=== PATIENT | female | born 1980 | race Caucasian/White ===

== ENCOUNTER 2017-04-14 07:14 | Emergency (ER) | payer SELFPAY ==
--- NOTE | ~2017-04-14 | ER ---
PATIENT'S NAME: WILLPRIMITIVO Casanova [facility] AGE: 36 Y [address] ROOM: [place] [address] LOCATION: ED ADMIT DATE: 04/14/2017 ER/Outpatient Report DISCHARGE DATE: 04/14/2017 FAMILY PHYSICIAN: Itzel Locke MD ATTENDING PHYSICIAN: Sandra Delatorre Time of Arrival: 0720 hours. Time of Evaluation/Seen: 0726 hours. IDENTIFICATION: A 36-year-old female. CHIEF COMPLAINT: Anxiety attack. HISTORY OF PRESENT ILLNESS: The patient is a 36-year-old female who has anxiety, has been seeing Dr. Locke. She saw Dr. Locke and was placed on Wellbutrin on February 23, increased the dose 10 days ago. Today, she has chest tightness. She has been having that off and on lately, short of breath, numbness in her hands bilaterally, abdominal pain, and nausea. No vomiting. No diarrhea or constipation. No other symptoms. The patient did not go to [place] today because she did not have a way to get there and was very anxious so came in here. PAST MEDICAL HISTORY: ALLERGIES: PENICILLIN. CURRENT MEDICATIONS: 1. Symbicort. 2. She just finished prednisone for respiratory symptoms. 3. Wellbutrin. 4. Trazodone. MEDICAL PROBLEMS: Anxiety and asthma. PAST SURGICAL HISTORY: Surgeries: 1. Appendectomy. 2. Tonsillectomy. SOCIAL HISTORY: [facility] 36 [facility] [address] ROOM: [place] [address] LOCATION: ED ADMIT DATE: 04/14/2017 ER/Outpatient Report DISCHARGE DATE: 04/14/2017 FAMILY PHYSICIAN: Itzel Locke MD ATTENDING PHYSICIAN: Sandra Delatorre The patient was living in [place]. She is currently going through a divorce, living with a friend here in [place]. She was working for [employer] and [employer], and just got a new job. Also in [employer]. Tobacco use, 1 pack per day. Alcohol use, socially. She has 20-year-old twins and a 14-year-old. REVIEW OF SYSTEMS: All systems reviewed and negative other than what is noted in the HPI. The patient's last menstrual period was in October 2008. She had an endometrial ablation. Her next appointment with a therapist, Debbie is next week on Wednesday. She goes every other week. She has no suicidal ideation. She has had no weight loss or weight gain. No difficulty sleeping with the trazodone. FAMILY HISTORY: Positive for asthma. PHYSICAL EXAMINATION: VITAL SIGNS: 5 feet 4 inches, weight 72 kg. Pulse 131, respiratory rate is 24, temperature 98.3, blood pressure 149/96, and saturations 97%. GENERAL: A 36-year-old female, in no acute distress, but very anxious. HEENT: Head; normocephalic and atraumatic. Ears; TMs translucent in both ears. Eyes; pupils equal and reactive to light and accommodation. Extraocular movements intact. Nose; mucosa pink. No lesions or drainage. Mouth; no lesions. Pharynx, benign. NECK: Supple. No lymphadenopathy. LUNGS: Clear to auscultation. Breath sounds are equal. No rhonchi, wheezes, or rales. HEART: Regular rate and rhythm. No murmur, rub, or gallop. ABDOMEN: Bowel sounds present. Soft, nondistended. No hepatosplenomegaly. No palpable masses. Nontender. SKIN: [place], warm, and dry. No lesions or rashes noted. NEUROLOGIC: No focal deficit. PSYCHIATRIC: The patient is very anxious. She does make good eye contact. LABORATORY DATA AND IMAGING STUDIES: Sodium 142, potassium 2.6, chloride 104, CO2 of 27, BUN 11, creatinine 0.9, and blood sugar 109. Liver enzymes, normal. HCG is less than 1. Cardiac enzymes, negative. TSH 1.760. EKG; sinus tachycardia at 109 beats per minute. No acute ST elevation or depression. Hemoglobin 14.8, hematocrit 40.6, platelets 372,000, white count 14.9, and normal differential. HOSPITAL COURSE: The patient was given Xanax 0.25 mg p.o. for anxiety, potassium 40 mEq p.o. for hypokalemia. The patient remained hemodynamically stable throughout her stay here in the emergency room, and in fact, her heart rate improved slightly, and she was feeling better. She was unable to give us a urine PATIENT'S NAME: PRIMITIVO WILL [facility] AGE: 36 Y [address] ROOM: [place] [address] LOCATION: [facility] ADMIT DATE: 04/14/2017 ER/Outpatient Report DISCHARGE DATE: 04/14/2017 FAMILY PHYSICIAN: Itzel Locke MD ATTENDING PHYSICIAN: Sandra Delatorre sample which had been ordered. IMPRESSION AND PLAN: 1. Anxiety. Xanax 0.25 mg given here. Script for 0.25 mg 1 p.o. b.i.d. p.r.n. anxiety, dispense 4 with 0 refills. 2. Hypokalemia. KCl 20 mEq b.i.d. for 3 days. Follow up for recheck with Dr. Locke. 3. Leukocytosis. The patient has no clinical evidence of infection. Chest x-ray is negative. Urine, she was unable to give us. Review of systems, otherwise, negative, and she just recently finished prednisone. Recommend recheck with her primary care physician. SANDRA DELATORRE MD CAR/modl /[id number] d: 04/14/17 1821 t: 04/15/17 0652, OUTPATIENT REPORT
[2017-04-14 08:04] LABS: BASOPHIL # 0.1 K/uL (0.0-0.2); BASOPHIL % 0.4 %; EOSINOPHIL % 0.2 %; HEMATOCRIT 40.6 % (33.0-46.0); HEMOGLOBIN 14.8 g/dL (11.0-15.0); IMMATURE GRANULOCYTE # 0.1 K/uL (0.0-0.3); IMMATURE GRANULOCYTE % 0.5 %; LYMPHOCYTE # 3.2 K/uL (0.8-4.0); LYMPHOCYTE % 21.5 %; MCH 30.4 pg (27.0-34.0); MCHC 36.5 gm/dL (32.0-36.5); MCV 83.4 fl (83.0-98.0); MONOCYTE # 1.1 K/uL (0.0-1.0); MONOCYTE % 7.6 %; MPV 10.2 fl (9.4-12.4); NEUTROPHIL # (ANC) 10.4 K/uL (1.8-7.8); NEUTROPHIL % 69.8 %; NRBC % 0 /100WBC (0-0.00); PLATELET COUNT 372 K/uL (150-450); RBC 4.87 M/uL (3.50-5.50); RDW-CV 12.8 % (11.9-14.6); WBC 14.9 K/uL (4.0-11.0)
[2017-04-14 08:11] LABS: INR - (THERAPEUTIC) 1.03 (0.92-1.07); PROTIME 10.8 SECONDS (9.8-11.4); PTT 27 SECONDS (25-32)
[2017-04-14 08:25] LABS: ALBUMIN 3.9 gm/dL (3.5-5.0); ALK PHOS 61 IU/L (33-138); ALT 23 IU/L (12-78); AST 8 IU/L (10-40); BLOOD UREA NITROGEN 11 mg/dL (6-24); CALCIUM 8.8 mg/dL (8.5-10.5); CHLORIDE 104 mMol/L (96-110); CO2 27 mMol/L (22-32); CPK 62 IU/L (21-215); CREATININE 0.9 mg/dL (0.5-1.1); MAGNESIUM 1.9 mg/dL (1.8-2.6); SODIUM 142 mMol/L (135-145); TOTAL BILIRUBIN 0.5 mg/dL (0.0-1.5); TOTAL PROTEIN 7.6 g/dL (6.0-8.4)
[2017-04-14 08:29] LABS: ANION GAP 13.6 (10.0-19.0); POTASSIUM 2.6 mMol/L (3.7-5.1)
== END 2017-04-14 09:07 | disposition disaster alternative care site (69) ==
LOC: GMED 07:14
PROVIDERS: Family Medicine
DX: F41.9 Anxiety disorder, unspecified (principal); J45.909 Unspecified asthma, uncomplicated; E87.6 Hypokalemia; F17.210 Nicotine dependence, cigarettes, uncomplicated; D72.829 Elevated white blood cell count, unspecified; Z79.899 Other long term (current) drug therapy; Z90.89 Acquired absence of other organs; Z88.0 Allergy status to penicillin; Z90.49 Acquired absence of other specified parts of digestive tract